=== PATIENT | female | born 1965 | race Caucasian/White ===

== ENCOUNTER → 2018-01-31 09:20 | Outpatient (CLI) | payer OTHER, SELFPAY ==
[2018-01-31 12:49] LABS: Anion Gap 9 (5-15); BUN 12 mg/dL (7-18); BUN/Creat Ratio 19.5 RATIO (10-20); Calcium,Total 8.7 mg/dL (8.5-10.1); Chloride 110 mmol/L (98-107); Cholesterol 189 mg/dL (200); Creatinine, Serum 0.61 mg/dL (0.55-1.02); EST Glomerular Filtration Rate 108 mL/min (>60); Est Glom Filt Rate - Afr Amer 131 mL/min (>60); Glucose 102 mg/dL (74-106); High Density Lipoprotein 68 mg/dL; Magnesium 2.2 mg/dL (1.6-2.6); Potassium 3.9 mmol/L (3.5-5.1); Sodium Level 143 mmol/L (136-145); Thyroid Stim Hormone (TSH) 1.02 uIU/mL (0.358-3.74); Triglycerides 77 mg/dL; Very Low Density Lipoprotein 15 mg/dL (5-40)
== END ==
PROVIDERS: Family Provider Family Medicine; PCP Family Medicine; Visit Provider Family Medicine
DX: R00.2 Palpitations (principal)
CPT/HCPCS: 36415; 80048; 80061; 83735; 84443

== ENCOUNTER 2019-12-07 05:43 | Emergency (ER) | payer OTHER, SELFPAY ==
[2019-12-07 05:44] VITALS: BP 154/93; PULSE 86; RESP 16; TEMP 36.4; O2SAT 94; BMI 32.2
--- NOTE | 2019-12-07 05:53 | ED.VISSUMM ---
- ER Visit Summary Date of Service: 12/07/19 Chief Complaint: Concern for blood in stool History of Present Illness: The patient is a 54 F no seen in past medical history other than a prior cholecystectomy. She did have a colonoscopy at 49 years old. States at that time she had some diverticulosis. Denies ever having GI bleeding before. States she is had intermittent diarrhea for months and has had the last several days. This morning about 2 hours ago was on the commode and primarily blood with stool. No melena. She does not believe clots. She denies being lightheaded or dizzy. She is on no blood thinners. She has no prior history of GI bleed. Physical Examination: Middle-aged female no acute distress vital signs stable afebrile. HEENT exam unremarkable. Neck nontender. Lungs clear to auscultation bilaterally. Heart regular rhythm no murmur. Abdomen soft nontender normal bowel sounds no peritoneal signs. Patient is moving all 4 extremities. No edema. Neurologically she is awake and alert with no focal motor deficits. Test Results: BMP is normal with normal BUN, creatinine and gap. CBC shows no acute abnormality with a hemoglobin of 14. Platelet count of 291,000. Emergency Department Course and Treatment: Patient with suspected rectal bleeding. She clinically appears stable. She is on no blood thinners. At least a history does not suggest a large amount of bleeding. Labs are being obtained. Gregg exam patient is doing well at 6:10 AM. She will be discharged home with outpatient follow-up. Treatment Plan: Follow-up with her primary care physician and/or Dr. Newton for possible colonoscopy. Return if heavier bleeding. Disposition: Discharge Impression: Acute rectal bleeding of uncertain etiology This note was generated with [employer] dictation software. It may contain incorrect words, spelling, and punctuation that were not noted in review of the chart prior to signing ED Disposition - Plan for ED Patient: Disposition: Home or Assisted Living Instructions: ED Hematochezia Stable Referrals: Jorje Oneill MD [Primary Care Provider] - As Needed Curt Newton MD [NON-STAFF] - As soon as possible Additional Instructions: Follow-up with either Dr. Oneill or Dr. Newton you will need a another colonoscopy. Plenty of fluids and rest. Return if you are having much heavier bleeding or feel lightheaded or dizzy.
[2019-12-07 05:57] LABS: Absolute Lymphocyte Count 0.97 X10^3/uL (0.83-4.51); Absolute Neutrophil Count 2.7 X10^3/uL (2.0-7.7); Basophil# 0.05 X10^3/uL; Basophil% 1.2 % (0-1); Eosinophil# 0.15 X10^3/uL; Eosinophils% 3.6 % (0-5); Hematocrit 43.1 % (37-47); Lymphocyte # 0.97 X10^3/ul (4.0); Mean Corp Hgb Conc 32.5 g/dL (32-36); Mean Corpuscular Hgb 27.2 pg (27.0-32.0); Mean Corpuscular Volume 83.7 fL (81-99); Mean Platelet Vol. 9.1 fl (6.2-12.0); Monocyte# 0.38 X10^3/uL; NRBC Flagged by Analyzer 0 % (0-5); Neutrophil # 2.66 X10^3/uL (2.7-7.7); Platelet Count 291 K/mm3 (150-450); RBC Distribution Width CV 12.7 % (11.6-14.6); RBC Distribution Width SD 38.5 fl (35.1-43.9); Red Blood Count 5.15 M/mm3 (4.2-5.4); White Blood Count 4.2 K/mm3 (4.4-11.0)
--- NOTE | 2019-12-07 05:58 | ED.DEP ---
ED Disposition - Plan for ED Patient: Disposition: Home or Assisted Living Instructions: ED Hematochezia Stable Referrals: Jorje Oneill MD [Primary Care Provider] - As Needed Curt Newton MD [NON-STAFF] - As soon as possible Additional Instructions: Follow-up with either Dr. Oneill or Dr. Newton you will need a another colonoscopy. Plenty of fluids and rest. Return if you are having much heavier bleeding or feel lightheaded or dizzy.
[2019-12-07 06:06] LABS: Anion Gap 7 (5-15); BUN 12 mg/dL (7-18); BUN/Creat Ratio 15.6 RATIO (10-20); Calcium,Total 9.1 mg/dL (8.5-10.1); Chloride 109 mmol/L (98-107); Creatinine, Serum 0.77 mg/dL (0.55-1.02); EST Glomerular Filtration Rate 83 mL/min (>60); Est Glom Filt Rate - Afr Amer 100 mL/min (>60); Estimated Creatinine Clearance 74.28 ml/min; Glucose 107 mg/dL (74-106); Potassium 3.5 mmol/L (3.5-5.1); Sodium Level 140 mmol/L (136-145)
[2019-12-07 06:17] VITALS: BP 154/93; PULSE 82; RESP 16; O2SAT 98
== END 2019-12-07 06:34 | disposition home or self-care (01) ==
LOC: ED 06:29
PROVIDERS: Emergency Provider Emergency Medicine; PCP Family Medicine
DX: K62.5 Hemorrhage of anus and rectum (principal); R19.7 Diarrhea, unspecified; Z90.49 Acquired absence of other specified parts of digestive tract
CPT/HCPCS: 80048; 85025; 99283; A4216

== ENCOUNTER → 2019-12-09 14:56 | Outpatient (CLI) | payer OTHER, SELFPAY ==
[2019-12-07 05:44] VITALS: BMI 32.2
[2019-12-09 18:51] LABS: Absolute Lymphocyte Count 1.07 X10^3/uL (0.83-4.51); Absolute Neutrophil Count 3.3 X10^3/uL (2.0-7.7); Basophil# 0.05 X10^3/uL; Hematocrit 45.5 % (37-47); Hemoglobin 14.9 g/dL (12.0-15.0); Lymphocyte # 1.07 X10^3/ul (4.0); Lymphocyte % 21.9 % (19-41); Mean Corp Hgb Conc 32.7 g/dL (32-36); Mean Corpuscular Hgb 27.3 pg (27.0-32.0); Mean Corpuscular Volume 83.3 fL (81-99); Mean Platelet Vol. 9.6 fl (6.2-12.0); Monocyte# 0.41 X10^3/uL; Monocyte% 8.4 % (0-10); NRBC Flagged by Analyzer 0 % (0-5); Neutrophil # 3.25 X10^3/uL (2.7-7.7); Neutrophil % 66.5 % (47-70); Platelet Count 347 K/mm3 (150-450); RBC Distribution Width CV 12.7 % (11.6-14.6); RBC Distribution Width SD 38.1 fl (35.1-43.9); Red Blood Count 5.46 M/mm3 (4.2-5.4); White Blood Count 4.9 K/mm3 (4.4-11.0)
[2019-12-09 19:00] LABS: ALB/GLOB Ratio 1.1 RATIO (0.9-2.4); AST(SGOT) 46 U/L (15-37); Alanine Aminotransfer ALT/SGPT 58 U/L (13-56); Albumin, Serum 4.4 g/dL (3.2-5.0); Alkaline Phosphatase 185 U/L (45-117); Anion Gap 9 (5-15); BUN 16 mg/dL (7-18); CRP 3.99 mg/L (0.0-3.0); Calcium,Total 9.6 mg/dL (8.5-10.1); Chloride 105 mmol/L (98-107); Creatinine, Serum 0.84 mg/dL (0.55-1.02); EST Glomerular Filtration Rate 75 mL/min (>60); Est Glom Filt Rate - Afr Amer 90 mL/min (>60); Ferritin 82 ng/mL (8-252); Globulin 3.9 g/dL (2.2-4.2); Glucose 91 mg/dL (74-106); Magnesium 2.2 mg/dL (1.6-2.6); Potassium 3.5 mmol/L (3.5-5.1); Protein, Total 8.3 g/dL (6.4-8.2); Sodium Level 138 mmol/L (136-145)
[2019-12-11 21:30] LABS: SAR-COV-2 IGA ANTIBODY Negative (Negative); SAR-COV-2 IGG ANTIBODY Negative (Negative); SAR-COV-2 IGM ANTIBODY Negative (Negative)
== END ==
PROVIDERS: PCP Family Medicine; Referring Provider Family Medicine; Visit Provider Family Medicine
DX: R19.7 Diarrhea, unspecified (principal)
CPT/HCPCS: 80053; 82728; 83735; 85025; 86140; 86769; G2023

== ENCOUNTER → 2019-12-10 07:30 | Outpatient (CLI) | payer OTHER, SELFPAY ==
[2019-12-07 05:44] VITALS: BMI 32.2
== END ==
PROVIDERS: PCP Family Medicine; Referring Provider Family Medicine; Visit Provider Family Medicine
DX: R19.7 Diarrhea, unspecified (principal)
CPT/HCPCS: 87506

== ENCOUNTER → 2020-01-02 15:16 | Outpatient (CLI) | payer OTHER, SELFPAY ==
[2019-12-07 05:44] VITALS: BMI 32.2
--- NOTE | 2020-01-02 | IMM_PTH ---
PATIENT: FIGUEROA GANDHI LOC: [facility] U#:[id number] AGE/SX: 59/F ROOM: RE01/02/[address]: Dr. Curt Newton MD : 1965 BED: DIS: SPEC #: [id number] RECD: 01/06/20 11:31 STATUS: ELIZABETH REDejon #: [id number] SHAHID: 01/02/20 00:[address]: Curt Newton DEPT: IMMUNOHISTOCHEMISTRY RECD BY: Becka Carlton ENTERED: 01/06/20 11:32 SP TYPE: IMMUNO OTHR DR: Dr. Jorje Oneill MD Tissues: A - Ileum, NOS Procedures: CD138 (add) CD20 (add) CD45 (add) CD5 (add) CD79A (add) CD3 (initial) PHYSICIAN & INSTITUTION [place] [id number] SPECIMEN INFORMATION: Tissue Source: A - Terminal ileum biopsy Clinical Info: Chronic diarrhea Specimen Number: [id number] CPT code: 88315, 69809 x5 METHODOLOGY: Deparaffinized sections of prefer/formalin-fixed tissue or PAP/DQ stained slides are incubated with monoclonal/polyclonal antibodies/oligonucleotide probes. Localization is made via biotin free immunoperoxidase method. Appropriate controls are performed and reacted as expected. Results on target cell population are indicated in the following table: RESULTS: ANTIBODY / CLONE RESULT Block A CD3 (PS1) positive CD5 (SP10) positive CD45 (RP2/18) positive CD20 (L26) positive CD79a (11E3) positive CD138 (B-A38) negative These tests were developed and their performance characteristics determined by [facility]. They may not have been cleared or approved by the U.[place]. Food and Drug Administration. The FDA has determined that such clearance or approval is not necessary. The above immunohistochemical/dualISH markers are ordered and reviewed by the Pathologist. INTERPRETATION: A. Terminal ileum, biopsy: Polytypic (benign) lymphoid aggregate. AM:adarsh 01/07/20
--- NOTE | 2020-01-02 10:00 | COLBX_PTH ---
PATIENT: FIGUEROA GANDHI LOC: [facility] U#:[id number] AGE/SX: 59/F ROOM: RE01/02/[address]: Dr. Curt Newton MD : 1965 BED: DIS: SPEC #: [id number] RECD: 01/02/20 14:54 STATUS: ELIZABETH [place] #: [id number] SHAHID: 01/02/20 10:[address]: Curt Newton DEPT: SURGICAL PATHOLOGY RECD BY: Roxanne Renee ENTERED: 01/05/20 09:11 SP TYPE: COLON BX OTHR DR: Dr. Jorje Oneill MD [facility] Tissues: A - Ileum, NOS B - COLON BIOPSY Procedures: Trichrome (control) Special Stain Group II Surgery Specimen Level IV HEADER OPERATION: Colonoscopy with biopsies PRE-OP DIAGNOSIS: Chronic diarrhea TISSUE SUBMITTED: A - Terminal ileum biopsies, rule out Crohn's, B - Right and left colon biopsies, rule out microscopic colitis MICROSCOPIC DIAGNOSIS A. Terminal ileum, biopsy: Benign lymphoid aggregates. See comment. B. Right and left colon, biopsy: Consistent with collagenous colitis. See comment. AM:adarsh 01/06/20 COMMENT A. Immunohistochemistry ([id number]) supports the above diagnosis. B. The basal plate is focally thickened. Trichrome stain with matched control supports the above diagnosis. Case has been reviewed in consultation with Dr. Morales who concurs with the above diagnosis. IDC:[email or web address] MICROSCOPIC DESCRIPTION Slides are reviewed. GROSS DESCRIPTION A - Received in fixative is one container labeled with the patient's name and designated terminal ileum biopsy. The specimen consists of multiple irregular fragments of light suarez soft tissue that in aggregate measure 0.5 x 0.4 x 0.1 cm. The specimen is totally submitted in one cassette. B - Received in fixative is one container labeled with the patient's name and designated right and left colon biopsy. The specimen consists of multiple irregular fragments of light suarez soft tissue that in aggregate measure 2 x 0.5 x 0.1 cm. The specimen is totally submitted in one cassette. / SJ:adarsh 01/05/20 TC:3 CPT: 01147 x2, 15747
== END ==
PROVIDERS: PCP Family Medicine; Referring Provider Internal Medicine Gastroenterology; Visit Provider Internal Medicine Gastroenterology
DX: K52.9 Noninfective gastroenteritis and colitis, unspecified (principal)
CPT/HCPCS: 88305; 88313; 88341; 88342

== ENCOUNTER → 2022-01-26 | Outpatient (CLI) | payer OTHER, SELFPAY | END | disposition home or self-care (01) | PROVIDERS: PCP Family Medicine; Visit Provider Nurse Practitioner Family | DX: U07.1 COVID-19 (principal) | CPT/HCPCS: 87635; U0003; U0005 ==

== ENCOUNTER → 2022-04-20 | Outpatient (CLI) | payer OTHER, SELFPAY ==
[2022-04-20 17:41] LABS: Absolute Lymphocyte Count 1.92 X10^3/uL (0.83-4.51); Absolute Neutrophil Count 2.8 X10^3/uL (2.0-7.7); Basophil# 0.05 X10^3/uL; Basophil% 0.9 % (0-1); Eosinophil# 0.08 X10^3/uL; Eosinophils% 1.5 % (0-5); Hematocrit 39.3 % (37-47); Hemoglobin 13.3 g/dL (12.0-15.0); Lymphocyte # 1.92 X10^3/ul (0.83-4.51); Mean Corp Hgb Conc 33.8 g/dL (32-36); Mean Corpuscular Hgb 28.5 pg (27.0-32.0); Mean Corpuscular Volume 84.2 fL (81-99); Mean Platelet Vol. 9.3 fl (6.2-12.0); Monocyte# 0.46 X10^3/uL; Monocyte% 8.6 % (0-10); NRBC Flagged by Analyzer 0 % (0-5); Neutrophil % 52.6 % (47-70); Platelet Count 323 K/mm3 (150-450); RBC Distribution Width CV 12.7 % (11.6-14.6); RBC Distribution Width SD 38.7 fl (35.1-43.9); Red Blood Count 4.67 M/mm3 (4.2-5.4); White Blood Count 5.3 K/mm3 (4.4-11.0)
[2022-04-20 18:46] LABS: ALB/GLOB Ratio 1.1 RATIO (0.9-2.4); AST(SGOT) 26 U/L (15-37); Alanine Aminotransfer ALT/SGPT 35 U/L (13-56); Alkaline Phosphatase 141 U/L (45-117); Anion Gap 6 (5-15); BUN 16 mg/dL (7-18); BUN/Creat Ratio 23.4 RATIO (10-20); CRP < 2.90 mg/L (0.0-3.0); Calcium,Total 9.6 mg/dL (8.5-10.1); Chloride 108 mmol/L (98-107); Creatinine, Serum 0.68 mg/dL (0.55-1.02); EST Glomerular Filtration Rate 94 mL/min (>60); Est Glom Filt Rate - Afr Amer 113 mL/min (>60); Globulin 3.6 g/dL (2.2-4.2); Glucose 81 mg/dL (74-106); Potassium 3.8 mmol/L (3.5-5.1); Protein, Total 7.6 g/dL (6.4-8.2); Sodium Level 140 mmol/L (136-145); Troponin-I HS 4 pg/mL (3.0-54.0)
== END | disposition home or self-care (01) ==
LOC: MFPLAB 16:49
PROVIDERS: PCP Family Medicine; Referring Provider Family Medicine; Visit Provider Family Medicine
DX: R07.89 Other chest pain (principal); K52.831 Collagenous colitis
CPT/HCPCS: 36415; 80053; 84484; 85025; 86140